=== PATIENT | male | born 1930 | race Caucasian/White ===

== ENCOUNTER 2017-11-01 16:00 | Inpatient (IN) | payer MEDICARE, BC ==
[~2017-11-01] VITALS: Ht 172.7 cm; Wt 86.4 kg
[2017-11-01] MEDS ORDERED: normal saline 1000ML IV soln IV ONE (16:10)
[2017-11-01 16:45] LABS: BASOPHILS % (AUTO) 0.3 % (0-1); EOSINOPHILS # (AUTO) 0.1 X10'3 (0-0.9); EOSINOPHILS % (AUTO) 1.5 % (0-6); HEMATOCRIT 35.7 % (42.0-52.0); HEMOGLOBIN 12.2 g/dl (14.0-17.9); LYMPHOCYTES # (AUTO) 1.7 X10'3 (1.1-4.8); LYMPHOCYTES % (AUTO) 18.4 % (21-51); MEAN CORPUSCULAR HEMOGLOBIN 33.7 PG (27.0-31.0); MEAN CORPUSCULAR HGB CONC 34.3 % (33.0-36.5); MEAN CORPUSCULAR VOLUME 98.2 FL (78-98); MEAN PLATELET VOLUME 7.3 FL (7.4-10.4); MONOCYTES # (AUTO) 0.6 X10'3 (0-0.9); MONOCYTES % (AUTO) 6.1 % (2-12); NEUTROPHILS # (AUTO) 6.9 X10'3 (1.8-7.7); NEUTROPHILS % (AUTO) 73.7 % (42-75); PLATELET COUNT 251 X10'3 (140-440); RED BLOOD COUNT 3.64 X10'6 (4.70-6.10); RED CELL DISTRIBUTION WIDTH 13.7 % (11.5-14.5); WHITE BLOOD COUNT 9.4 X10'3 (4.5-11.0)
[2017-11-01 16:54] LABS: PROTHROMBIN TIME 10.6 SECONDS (9.0-12.0)
[2017-11-01 17:00] LABS: ALANINE AMINOTRANSFERASE 21 U/L (12-78); ALBUMIN 3.3 G/DL (3.4-5.0); ALBUMIN/GLOBULIN RATIO 1.1 (1.1-1.5); ALKALINE PHOSPHATASE 63 IU/L (46-116); ANION GAP 6 (8-16); ASPARTATE AMINO TRANSFERASE 13 U/L (10-37); BILIRUBIN,TOTAL 0.3 MG/DL (0.1-1.0); BLOOD UREA NITROGEN 19 MG/DL (7-18); BUN/CREATININE RATIO 23.8 (5.4-32.0); CALCIUM 9.1 MG/DL (8.5-10.1); CHLORIDE 104 MMOL/L (99-107); GLUCOSE 103 MG/DL (70-104); SODIUM 138 MMOL/L (135-145); TOTAL CARBON DIOXIDE 28.1 MMOL/L (24-32); TOTAL PROTEIN 6.4 G/DL (6.4-8.2); eGFR > 90 ML/MIN
[2017-11-01] MEDS ORDERED: mag hydrox/Alum hydrox/simeth 30ml oral suspension PO PRN (17:10)
[2017-11-01] MEDS ORDERED: morphine 4 MG/ML inj SYRINge IV PRN ×2 (17:10)
[2017-11-01] MEDS ORDERED: ondansetron/PF 4mg/2ml inj IV PRN (17:10)
[2017-11-01] MEDS ORDERED: acetaminophen 325mg tablet PO PRN (17:10)
[2017-11-01] MEDS ORDERED: magnesium hydroxide 30ml (MOM) UD suspension PO PRN (17:10)
[2017-11-01 17:37] LABS: CLARITY,URINE CLEAR (Clear); COLOR,URINE YELLOW (Yellow); GLUCOSE, URINE NEGATIVE (Neg); KETONES,URINE NEGATIVE (Neg); LEUKOCYTE ESTERASE ,URINE NEGATIVE (Neg); NITRITES, URINE NEGATIVE (Neg); OCCULT BLOOD,URINE NEGATIVE (Neg); PH,URINE 5.5 (4.8-8.0); PROTEIN,URINE NEGATIVE (Neg); UROBILINOGEN,URINE 0.2 E.U/dL (0.2-1.0)
[2017-11-01 17:38] LABS: UA COLLECTION TYPE CLN CATCH MIDSTREAM
[2017-11-01] MEDS: normal saline 1000ml 1,000 ML IV SCH (17:46)
[2017-11-01 19:35] VITALS: BP 150/97
[2017-11-01] MEDS ORDERED: OMEG1CAP13 PO (19:35)
[2017-11-01] MEDS ORDERED: VITA-319 PO (19:35)
[2017-11-01] MEDS ORDERED: ADV50250 IH (19:35)
[2017-11-01] MEDS ORDERED: FLO0.4C PO (19:35)
[2017-11-01] MEDS ORDERED: RED600CA2 PO (19:35)
[2017-11-01] MEDS ORDERED: VITC500T PO (19:35)
[2017-11-01] MEDS ORDERED: ALBU8.5H8 INH (19:35)
[2017-11-01] MEDS ORDERED: pantoprazole 40 MG vial IV ONE (20:00)
[2017-11-01 21:27] LABS: BASOPHILS % (AUTO) 0.1 % (0-1); EOSINOPHILS # (AUTO) 0.1 X10'3 (0-0.9); EOSINOPHILS % (AUTO) 0.7 % (0-6); HEMATOCRIT 34.3 % (42.0-52.0); HEMOGLOBIN 11.6 g/dl (14.0-17.9); LYMPHOCYTES % (AUTO) 20.7 % (21-51); MEAN CORPUSCULAR HEMOGLOBIN 33.6 PG (27.0-31.0); MEAN CORPUSCULAR HGB CONC 33.7 % (33.0-36.5); MEAN CORPUSCULAR VOLUME 99.7 FL (78-98); MEAN PLATELET VOLUME 7.9 FL (7.4-10.4); MONOCYTES # (AUTO) 0.5 X10'3 (0-0.9); MONOCYTES % (AUTO) 5.6 % (2-12); NEUTROPHILS % (AUTO) 72.9 % (42-75); PLATELET COUNT 230 X10'3 (140-440); RED BLOOD COUNT 3.44 X10'6 (4.70-6.10); RED CELL DISTRIBUTION WIDTH 13.2 % (11.5-14.5); WHITE BLOOD COUNT 9.6 X10'3 (4.5-11.0)
[2017-11-01 22:32] VITALS: BP_SYST 121; BP_SYST 124; BP_SYST 148; BP_DIAS 71; BP_DIAS 72; BP_DIAS 90
[2017-11-02] VITALS (20 sets, daily range): BP systolic 95–138; BP diastolic 54–79
[2017-11-02] MEDS: normal saline 1000ml 1,000 ML IV SCH ×2 (02:45→16:01)
[2017-11-02 04:41] LABS: BASOPHILS % (AUTO) 0 % (0-1); EOSINOPHILS # (AUTO) 0.1 X10'3 (0-0.9); EOSINOPHILS % (AUTO) 1.4 % (0-6); HEMATOCRIT 27.4 % (42.0-52.0); HEMOGLOBIN 9.3 g/dl (14.0-17.9); LYMPHOCYTES # (AUTO) 1.4 X10'3 (1.1-4.8); LYMPHOCYTES % (AUTO) 15.2 % (21-51); MEAN CORPUSCULAR HEMOGLOBIN 33.7 PG (27.0-31.0); MEAN CORPUSCULAR VOLUME 99.1 FL (78-98); MEAN PLATELET VOLUME 7.5 FL (7.4-10.4); MONOCYTES # (AUTO) 0.5 X10'3 (0-0.9); MONOCYTES % (AUTO) 5.5 % (2-12); NEUTROPHILS # (AUTO) 7.2 X10'3 (1.8-7.7); NEUTROPHILS % (AUTO) 77.9 % (42-75); PLATELET COUNT 197 X10'3 (140-440); RED BLOOD COUNT 2.76 X10'6 (4.70-6.10); RED CELL DISTRIBUTION WIDTH 13.4 % (11.5-14.5); WHITE BLOOD COUNT 9.3 X10'3 (4.5-11.0)
[2017-11-02 05:02] LABS: ALBUMIN 2.6 G/DL (3.4-5.0); ANION GAP 5 (8-16); BLOOD UREA NITROGEN 18 MG/DL (7-18); BUN/CREATININE RATIO 20.9 (5.4-32.0); CALCIUM 8.5 MG/DL (8.5-10.1); CHLORIDE 108 MMOL/L (99-107); CREATININE 0.86 MG/DL (0.60-1.10); GLUCOSE 110 MG/DL (70-104); POTASSIUM 4.1 MMOL/L (3.5-5.1); SODIUM 139 MMOL/L (135-145); TOTAL CARBON DIOXIDE 25.6 MMOL/L (24-32); eGFR 85 ML/MIN
[2017-11-02] MEDS ORDERED: NAPR-1154 PO (12:04)
[2017-11-02] MEDS ORDERED: PREG50CA PO (12:04)
[2017-11-02] MEDS ORDERED: fentaNYL/PF 50MCG/1 ML 2ML syringe ONE (12:35)
[2017-11-02] MEDS ORDERED: MIDAZolam 5mg/5ml vial ONE (12:35)
[2017-11-02] MEDS ORDERED: LIDOcaine Viscous 15ml cup ONE (12:35)
[2017-11-02] MEDS ORDERED: non-formulary drug (Albuterol Sulfate (Proair Hfa) 1 PUFFS) INH PRN (12:50)
[2017-11-02] MEDS ORDERED: albuterol 2.5 MG/3 ML nebule NEB PRN (12:55)
[2017-11-02 17:18] LABS: BASOPHILS # (AUTO) 0.1 X10'3 (0-0.2); BASOPHILS % (AUTO) 1.3 % (0-1); EOSINOPHILS # (AUTO) 0.1 X10'3 (0-0.9); EOSINOPHILS % (AUTO) 0.7 % (0-6); HEMATOCRIT 28.4 % (42.0-52.0); HEMOGLOBIN 9.7 g/dl (14.0-17.9); LYMPHOCYTES # (AUTO) 2.2 X10'3 (1.1-4.8); LYMPHOCYTES % (AUTO) 20.3 % (21-51); MEAN CORPUSCULAR HEMOGLOBIN 33.9 PG (27.0-31.0); MEAN CORPUSCULAR HGB CONC 34.1 % (33.0-36.5); MEAN CORPUSCULAR VOLUME 99.3 FL (78-98); MEAN PLATELET VOLUME 7.7 FL (7.4-10.4); MONOCYTES # (AUTO) 0.7 X10'3 (0-0.9); MONOCYTES % (AUTO) 6.5 % (2-12); NEUTROPHILS # (AUTO) 7.7 X10'3 (1.8-7.7); NEUTROPHILS % (AUTO) 71.2 % (42-75); PLATELET COUNT 201 X10'3 (140-440); RED BLOOD COUNT 2.86 X10'6 (4.70-6.10); RED CELL DISTRIBUTION WIDTH 12.9 % (11.5-14.5); WHITE BLOOD COUNT 10.8 X10'3 (4.5-11.0)
[2017-11-02] MEDS ORDERED: PREGABALIN PO SCH (20:00)
[2017-11-02] MEDS ORDERED: non-formulary drug (Fluticasone/Salmeterol* (Advair 250-50 Diskus*) 1 PUFF) IH SCH (20:00)
[2017-11-02] MEDS: pantoprazole 40 MG vial IV SCH (20:57)
[2017-11-02 21:06] LABS: HEMATOCRIT 25.9 % (42.0-52.0); HEMOGLOBIN 8.8 g/dl (14.0-17.9); MEAN CORPUSCULAR HEMOGLOBIN 33.8 PG (27.0-31.0); MEAN CORPUSCULAR HGB CONC 34.2 % (33.0-36.5); MEAN CORPUSCULAR VOLUME 98.8 FL (78-98); MEAN PLATELET VOLUME 6.9 FL (7.4-10.4); PLATELET COUNT 204 X10'3 (140-440); RED BLOOD COUNT 2.62 X10'6 (4.70-6.10); RED CELL DISTRIBUTION WIDTH 13.8 % (11.5-14.5); WHITE BLOOD COUNT 10.2 X10'3 (4.5-11.0)
[2017-11-02] MEDS: pregabalin 25mg capsule PO SCH (21:06)
[2017-11-02] MEDS: albuterol 2.5 MG/3 ML nebule NEB SCH (23:04)
[2017-11-02] MEDS: BUDESONIDE 0.25 MG/2 ML AMPUL.NEB IH SCH (23:04)
[2017-11-03 05:49] LABS: BASOPHILS % (AUTO) 0.3 % (0-1); EOSINOPHILS # (AUTO) 0.1 X10'3 (0-0.9); EOSINOPHILS % (AUTO) 1.8 % (0-6); HEMOGLOBIN 8.3 g/dl (14.0-17.9); LYMPHOCYTES # (AUTO) 1.4 X10'3 (1.1-4.8); LYMPHOCYTES % (AUTO) 17.3 % (21-51); MEAN CORPUSCULAR HEMOGLOBIN 34.1 PG (27.0-31.0); MEAN CORPUSCULAR HGB CONC 34.4 % (33.0-36.5); MEAN PLATELET VOLUME 7.3 FL (7.4-10.4); MONOCYTES # (AUTO) 0.5 X10'3 (0-0.9); MONOCYTES % (AUTO) 6.6 % (2-12); NEUTROPHILS # (AUTO) 5.9 X10'3 (1.8-7.7); PLATELET COUNT 174 X10'3 (140-440); RED BLOOD COUNT 2.42 X10'6 (4.70-6.10); RED CELL DISTRIBUTION WIDTH 13.4 % (11.5-14.5); WHITE BLOOD COUNT 7.9 X10'3 (4.5-11.0)
[2017-11-03 06:08] LABS: ALBUMIN 2.5 G/DL (3.4-5.0); ANION GAP 4 (8-16); BLOOD UREA NITROGEN 15 MG/DL (7-18); BUN/CREATININE RATIO 19.5 (5.4-32.0); CALCIUM 8.2 MG/DL (8.5-10.1); CHLORIDE 109 MMOL/L (99-107); CREATININE 0.77 MG/DL (0.60-1.10); GLUCOSE 98 MG/DL (70-104); POTASSIUM 3.8 MMOL/L (3.5-5.1); SODIUM 140 MMOL/L (135-145); TOTAL CARBON DIOXIDE 27.5 MMOL/L (24-32); eGFR > 90 ML/MIN
[2017-11-03 06:55] VITALS: BP 129/69
[2017-11-03] MEDS: BUDESONIDE 0.25 MG/2 ML AMPUL.NEB IH SCH ×2 (07:19→19:50)
[2017-11-03] MEDS: albuterol 2.5 MG/3 ML nebule NEB SCH ×4 (07:19→19:50)
[2017-11-03] MEDS ORDERED: FATTY ACIDS PO SCH (08:00)
[2017-11-03] MEDS ORDERED: FISH OIL PO SCH (08:00)
[2017-11-03] MEDS ORDERED: RED YEAST RICE PO SCH (08:00)
[2017-11-03] MEDS ORDERED: OMEGA PO SCH (08:00)
[2017-11-03] MEDS: pregabalin 25mg capsule PO SCH ×2 (08:40→19:13)
[2017-11-03] MEDS: tamsulosin 0.4mg capsule PO SCH (08:40)
[2017-11-03] MEDS: ascorbic acid 500mg tablet PO SCH (08:40)
[2017-11-03] MEDS: pantoprazole 40 MG vial IV SCH ×2 (08:40→19:13)
[2017-11-03] MEDS: normal saline 1000ml 1,000 ML IV SCH ×3 (09:07→19:06)
[2017-11-03] MEDS ORDERED: PEG 3350/Na sulf,bicarb,Cl/KCl oral sol 4 liter bottle PO ONE (10:15)
[2017-11-03] MEDS: MESSAGE TO NURSING PO NR (10:31)
[2017-11-03 10:55] VITALS: BP 101/55
[2017-11-03 13:15] LABS: HEMATOCRIT 25.1 % (42.0-52.0); HEMOGLOBIN 8.5 g/dl (14.0-17.9); MEAN CORPUSCULAR HEMOGLOBIN 33.7 PG (27.0-31.0); MEAN CORPUSCULAR HGB CONC 33.8 % (33.0-36.5); MEAN CORPUSCULAR VOLUME 99.8 FL (78-98); MEAN PLATELET VOLUME 7.3 FL (7.4-10.4); PLATELET COUNT 188 X10'3 (140-440); RED BLOOD COUNT 2.52 X10'6 (4.70-6.10); RED CELL DISTRIBUTION WIDTH 12.7 % (11.5-14.5); WHITE BLOOD COUNT 7.2 X10'3 (4.5-11.0)
[2017-11-03 19:00] VITALS: BP_SYST 122; BP_SYST 124; BP_SYST 131; BP_DIAS 60; BP_DIAS 64
[2017-11-04] VITALS: BP 132/71
[2017-11-04] MEDS: normal saline 1000ml 1,000 ML IV SCH ×2 (04:21→16:47)
[2017-11-04 04:42] LABS: BASOPHILS % (AUTO) 0.3 % (0-1); EOSINOPHILS # (AUTO) 0.1 X10'3 (0-0.9); EOSINOPHILS % (AUTO) 0.9 % (0-6); HEMATOCRIT 23.3 % (42.0-52.0); HEMOGLOBIN 8.1 g/dl (14.0-17.9); LYMPHOCYTES # (AUTO) 1.5 X10'3 (1.1-4.8); LYMPHOCYTES % (AUTO) 20.2 % (21-51); MEAN CORPUSCULAR HEMOGLOBIN 34.4 PG (27.0-31.0); MEAN CORPUSCULAR HGB CONC 34.6 % (33.0-36.5); MEAN CORPUSCULAR VOLUME 99.3 FL (78-98); MEAN PLATELET VOLUME 7.5 FL (7.4-10.4); MONOCYTES # (AUTO) 0.5 X10'3 (0-0.9); MONOCYTES % (AUTO) 7.2 % (2-12); NEUTROPHILS # (AUTO) 5.5 X10'3 (1.8-7.7); NEUTROPHILS % (AUTO) 71.4 % (42-75); PLATELET COUNT 187 X10'3 (140-440); RED BLOOD COUNT 2.35 X10'6 (4.70-6.10); RED CELL DISTRIBUTION WIDTH 12.8 % (11.5-14.5); WHITE BLOOD COUNT 7.6 X10'3 (4.5-11.0)
[2017-11-04 04:46] LABS: ALBUMIN 2.4 G/DL (3.4-5.0); ANION GAP 5 (8-16); BLOOD UREA NITROGEN 8 MG/DL (7-18); BUN/CREATININE RATIO 11.4 (5.4-32.0); CALCIUM 8.4 MG/DL (8.5-10.1); CHLORIDE 110 MMOL/L (99-107); GLUCOSE 101 MG/DL (70-104); POTASSIUM 3.5 MMOL/L (3.5-5.1); SODIUM 144 MMOL/L (135-145); TOTAL CARBON DIOXIDE 28.9 MMOL/L (24-32); eGFR > 90 ML/MIN
[2017-11-04] MEDS: BUDESONIDE 0.25 MG/2 ML AMPUL.NEB IH SCH ×2 (07:17→19:19)
[2017-11-04] MEDS: albuterol 2.5 MG/3 ML nebule NEB SCH ×4 (07:17→19:19)
[2017-11-04 07:30] VITALS: BP 142/77
[2017-11-04] MEDS: ascorbic acid 500mg tablet PO SCH (08:00)
[2017-11-04] MEDS: pantoprazole 40 MG vial IV SCH ×2 (08:19→19:45)
[2017-11-04] MEDS: pregabalin 25mg capsule PO SCH ×2 (08:19→19:45)
[2017-11-04] MEDS: tamsulosin 0.4mg capsule PO SCH (08:19)
[2017-11-04] MEDS: MESSAGE TO NURSING PO NR (08:26)
[2017-11-04 10:40] VITALS: BP_SYST 109; BP_SYST 115; BP_SYST 94; BP_DIAS 49; BP_DIAS 52; BP_DIAS 56
[2017-11-04 11:00] VITALS: BP 93/67
[2017-11-04] MEDS ORDERED: normal saline 500ml IV soln 500 ML IV ONE (12:10)
[2017-11-04 14:00] VITALS: BP 112/52
[2017-11-04] MEDS ORDERED: PEG 3350/Na sulf,bicarb,Cl/KCl oral sol 4 liter bottle PO ONE (14:00)
[2017-11-04 16:29] LABS: HEMATOCRIT 23.5 % (42.0-52.0); MEAN CORPUSCULAR HEMOGLOBIN 34.1 PG (27.0-31.0); MEAN CORPUSCULAR HGB CONC 34.3 % (33.0-36.5); MEAN CORPUSCULAR VOLUME 99.5 FL (78-98); MEAN PLATELET VOLUME 7.2 FL (7.4-10.4); PLATELET COUNT 192 X10'3 (140-440); RED BLOOD COUNT 2.36 X10'6 (4.70-6.10); RED CELL DISTRIBUTION WIDTH 13.8 % (11.5-14.5); WHITE BLOOD COUNT 7.3 X10'3 (4.5-11.0)
[2017-11-04 19:00] VITALS: BP_SYST 132; BP_SYST 139; BP_SYST 144; BP_DIAS 56; BP_DIAS 61; BP_DIAS 69
[2017-11-05] VITALS (15 sets, daily range): BP systolic 95–142; BP diastolic 56–80
[2017-11-05] MEDS: normal saline 1000ml 1,000 ML IV SCH ×2 (02:44→11:07)
[2017-11-05 05:40] LABS: BASOPHILS % (AUTO) 0.4 % (0-1); EOSINOPHILS # (AUTO) 0.2 X10'3 (0-0.9); EOSINOPHILS % (AUTO) 2.9 % (0-6); HEMATOCRIT 22.1 % (42.0-52.0); HEMOGLOBIN 7.5 g/dl (14.0-17.9); LYMPHOCYTES # (AUTO) 1.2 X10'3 (1.1-4.8); LYMPHOCYTES % (AUTO) 18.8 % (21-51); MEAN CORPUSCULAR HEMOGLOBIN 34.1 PG (27.0-31.0); MEAN CORPUSCULAR HGB CONC 34.1 % (33.0-36.5); MEAN CORPUSCULAR VOLUME 100.1 FL (78-98); MEAN PLATELET VOLUME 7.3 FL (7.4-10.4); MONOCYTES # (AUTO) 0.5 X10'3 (0-0.9); MONOCYTES % (AUTO) 7.8 % (2-12); NEUTROPHILS # (AUTO) 4.6 X10'3 (1.8-7.7); NEUTROPHILS % (AUTO) 70.1 % (42-75); PLATELET COUNT 189 X10'3 (140-440); RED BLOOD COUNT 2.21 X10'6 (4.70-6.10); RED CELL DISTRIBUTION WIDTH 14.1 % (11.5-14.5); WHITE BLOOD COUNT 6.6 X10'3 (4.5-11.0)
[2017-11-05 06:09] LABS: ALBUMIN 2.4 G/DL (3.4-5.0); ANION GAP 7 (8-16); BLOOD UREA NITROGEN 4 MG/DL (7-18); BUN/CREATININE RATIO 4.9 (5.4-32.0); CALCIUM 8.2 MG/DL (8.5-10.1); CHLORIDE 110 MMOL/L (99-107); CREATININE 0.81 MG/DL (0.60-1.10); GLUCOSE 95 MG/DL (70-104); POTASSIUM 3.5 MMOL/L (3.5-5.1); SODIUM 144 MMOL/L (135-145); TOTAL CARBON DIOXIDE 27.4 MMOL/L (24-32); eGFR > 90 ML/MIN
[2017-11-05] MEDS: albuterol 2.5 MG/3 ML nebule NEB SCH ×4 (07:06→20:04)
[2017-11-05] MEDS: BUDESONIDE 0.25 MG/2 ML AMPUL.NEB IH SCH ×2 (07:06→20:04)
[2017-11-05] MEDS: pregabalin 25mg capsule PO SCH ×2 (07:37→20:21)
[2017-11-05] MEDS: ascorbic acid 500mg tablet PO SCH (07:37)
[2017-11-05] MEDS: MESSAGE TO NURSING PO NR (07:37)
[2017-11-05] MEDS: tamsulosin 0.4mg capsule PO SCH (07:37)
[2017-11-05] MEDS: pantoprazole 40 MG vial IV SCH (07:37)
[2017-11-05] MEDS ORDERED: fentaNYL/PF 50MCG/1 ML 2ML syringe ONE (08:17)
[2017-11-05] MEDS ORDERED: MIDAZolam 5mg/5ml vial ONE (08:18)
[2017-11-05 16:11] LABS: HEMATOCRIT 23.7 % (42.0-52.0); HEMOGLOBIN 8.2 g/dl (14.0-17.9); MEAN CORPUSCULAR HEMOGLOBIN 34.3 PG (27.0-31.0); MEAN CORPUSCULAR HGB CONC 34.5 % (33.0-36.5); MEAN CORPUSCULAR VOLUME 99.2 FL (78-98); MEAN PLATELET VOLUME 7.2 FL (7.4-10.4); PLATELET COUNT 229 X10'3 (140-440); RED BLOOD COUNT 2.39 X10'6 (4.70-6.10); WHITE BLOOD COUNT 7.7 X10'3 (4.5-11.0)
[2017-11-05] MEDS: pantoprazole 40mg Tablet.DR PO SCH (20:21)
[2017-11-06] VITALS: BP 121/60
[2017-11-06 05:09] LABS: BASOPHILS % (AUTO) 0.2 % (0-1); EOSINOPHILS # (AUTO) 0.2 X10'3 (0-0.9); EOSINOPHILS % (AUTO) 2.3 % (0-6); HEMATOCRIT 22.5 % (42.0-52.0); HEMOGLOBIN 7.9 g/dl (14.0-17.9); LYMPHOCYTES # (AUTO) 1.4 X10'3 (1.1-4.8); LYMPHOCYTES % (AUTO) 16.6 % (21-51); MEAN CORPUSCULAR HEMOGLOBIN 35.1 PG (27.0-31.0); MEAN CORPUSCULAR HGB CONC 35.1 % (33.0-36.5); MEAN PLATELET VOLUME 7.2 FL (7.4-10.4); MONOCYTES # (AUTO) 0.7 X10'3 (0-0.9); MONOCYTES % (AUTO) 8.2 % (2-12); NEUTROPHILS # (AUTO) 5.9 X10'3 (1.8-7.7); NEUTROPHILS % (AUTO) 72.7 % (42-75); PLATELET COUNT 214 X10'3 (140-440); RED BLOOD COUNT 2.25 X10'6 (4.70-6.10); RED CELL DISTRIBUTION WIDTH 13.4 % (11.5-14.5); WHITE BLOOD COUNT 8.2 X10'3 (4.5-11.0)
[2017-11-06 06:20] LABS: ALBUMIN 2.5 G/DL (3.4-5.0); ANION GAP 7 (8-16); BLOOD UREA NITROGEN 5 MG/DL (7-18); CALCIUM 8.4 MG/DL (8.5-10.1); CHLORIDE 107 MMOL/L (99-107); CREATININE 0.84 MG/DL (0.60-1.10); GLUCOSE 103 MG/DL (70-104); POTASSIUM 3.2 MMOL/L (3.5-5.1); SODIUM 142 MMOL/L (135-145); TOTAL CARBON DIOXIDE 28.1 MMOL/L (24-32); eGFR 87 ML/MIN
[2017-11-06] MEDS: pregabalin 25mg capsule PO SCH (06:55)
[2017-11-06] MEDS: ascorbic acid 500mg tablet PO SCH (06:55)
[2017-11-06] MEDS: tamsulosin 0.4mg capsule PO SCH (06:55)
[2017-11-06] MEDS: pantoprazole 40mg Tablet.DR PO SCH (06:56)
[2017-11-06 07:00] VITALS: BP 120/94
[2017-11-06] MEDS: albuterol 2.5 MG/3 ML nebule NEB SCH ×2 (07:00→11:31)
[2017-11-06 08:10] VITALS: BP_SYST 120; BP_SYST 130; BP_SYST 132; BP_DIAS 69; BP_DIAS 73; BP_DIAS 94
[2017-11-06] MEDS: BUDESONIDE 0.25 MG/2 ML AMPUL.NEB IH SCH (08:50)
[2017-11-06] MEDS: MESSAGE TO NURSING PO NR (09:46)
[2017-11-06] MEDS ORDERED: potassium Cl 20 mEq SR tablet PO STA (10:13)
[2017-11-06] MEDS ORDERED: PANT40TA4 PO (10:38)
[2017-11-06 12:28] VITALS: BP 128/68
== END 2017-11-06 13:00 | disposition home or self-care (01) | DRG 378 ==
LOC: ER 16:01 → ED HOLD 17:07 → SUR 3N 19:35
PROVIDERS: ADMIT Internal Medicine; ATTEND Family Medicine
PROC: 0DB68ZX Excision of Stomach, Via Natural or Artificial Opening Endoscopic, Diagnostic (ICD-10-PCS; 2017-11-02)
PROC: 0DBK8ZX Excision of Ascending Colon, Via Natural or Artificial Opening Endoscopic, Diagnostic (ICD-10-PCS; principal; 2017-11-05)
DX: K92.1 Melena (principal); D62 Acute posthemorrhagic anemia; J44.9 Chronic obstructive pulmonary disease, unspecified; E78.00 Pure hypercholesterolemia, unspecified; R33.9 Retention of urine, unspecified; E87.6 Hypokalemia; H91.90 Unspecified hearing loss, unspecified ear; I95.1 Orthostatic hypotension; D12.2 Benign neoplasm of ascending colon; K57.30 Diverticulosis of large intestine without perforation or abscess without bleeding; K20.9 Esophagitis, unspecified; K25.9 Gastric ulcer, unspecified as acute or chronic, without hemorrhage or perforation; K29.80 Duodenitis without bleeding; K44.9 Diaphragmatic hernia without obstruction or gangrene; K64.8 Other hemorrhoids; N40.1 Benign prostatic hyperplasia with lower urinary tract symptoms; T39.395A Adverse effect of other nonsteroidal anti-inflammatory drugs [NSAID], initial encounter; Z79.899 Other long term (current) drug therapy; Z87.891 Personal history of nicotine dependence
CPT/HCPCS: 36415; 43239; 45385; 71045; 80048; 80053; 81003; 84484; 85025; 85027; 85610; 86885; 86900; 86901; 87070; 88305; 88342; 93005; 94640; 94760; 97116; 97161; 97530; 99285; A4353; A4620; C9113; G0500; J2250; J3010; J7030

== ENCOUNTER 2019-01-18 05:16 | Inpatient (IN) | payer MEDICARE, BC ==
[2019-01-08 12:55] LABS: BASOPHILS % (AUTO) 0.4 % (0-1); EOSINOPHILS # (AUTO) 0.1 X10'3 (0-0.9); EOSINOPHILS % (AUTO) 0.9 % (0-6); LYMPHOCYTES # (AUTO) 1.7 X10'3 (1.1-4.8); LYMPHOCYTES % (AUTO) 23.1 % (21-51); MEAN CORPUSCULAR HGB CONC 34.6 g/dL (33.0-36.5); MEAN CORPUSCULAR VOLUME 101.3 FL (78-98); MEAN PLATELET VOLUME 7.7 FL (7.4-10.4); MONOCYTES # (AUTO) 0.6 X10'3 (0-0.9); MONOCYTES % (AUTO) 8.2 % (2-12); NEUTROPHILS % (AUTO) 67.4 % (42-75); PRE OP HEMATOCRIT 44.9 % (42.0-52.0); PRE OP HEMOGLOBIN 15.5 g/dL (14.0-17.9); PRE OP PLATELET COUNT 222 X10'3 (140-440); RED BLOOD COUNT 4.43 X10'6 (4.70-6.10); RED CELL DISTRIBUTION WIDTH 13.2 % (11.5-14.5)
[2019-01-08 13:14] LABS: PRE OP INR 1.1 INR; PRE OP PROTIME 11.1 SECONDS (9.0-12.0)
[2019-01-08 13:34] LABS: ALBUMIN 3.5 G/DL (3.4-5.0); ALKALINE PHOSPHATASE 70 IU/L (46-116); BLOOD UREA NITROGEN 23 MG/DL (7-18); BUN/CREATININE RATIO 28.4 (5.4-32.0); CALCIUM 8.9 MG/DL (8.5-10.1); CHLORIDE 109 MMOL/L (99-107); CREATININE 0.81 MG/DL (0.60-1.10); PRE OP ALT 20 U/L (30-65); PRE OP ANION GAP 9 (8-16); PRE OP AST 18 U/L (10-37); PRE OP BILIRUB, TOTAL 0.5 MG/DL (0.0-1.0); PRE OP GLUCOSE 111 MG/DL (70-104); PRE OP POTASSIUM 3.8 MMOL/L (3.4-5.1); PRE OP SODIUM 144 MMOL/L (135-145); TOTAL CARBON DIOXIDE 26.5 MMOL/L (24-32); TOTAL PROTEIN 7.1 G/DL (6.4-8.2); eGFR 90 ML/MIN
[2019-01-18] VITALS (18 sets, daily range): BP systolic 98–149; BP diastolic 60–89
[~2019-01-18] VITALS: Ht 175.3 cm; Wt 86.6 kg
[~2019-01-18 05:16] MED LIST: ALBU8.5H8 INH; FLO0.4C PO; MOME13HF2 INH; PREG50CA PO; ringers solution, lacted 1,000 ML IV SCH
[2019-01-18] MEDS ORDERED: famotidine 20mg tablet PO ONE (05:30)
[2019-01-18] MEDS ORDERED: cefazolin/dext.iso 2gm/50ml 50 ML IV ONE (05:30)
[2019-01-18] MEDS ORDERED: vancomycin inj 1,500 MG in normal saline 300ml IV soln IV ONE (05:30)
[2019-01-18] MEDS ORDERED: LIDOcaine 1% (10mg/ml) 2ml vial ONE (05:36)
[2019-01-18] MEDS ORDERED: BUPIVAcaine/PF 2.5 mg/ml (0.25%) 30ml vial ONE (06:50)
[2019-01-18] MEDS ORDERED: tetracaine 1% (10mg/ml) pres. free inj. ONE (07:14)
[2019-01-18] MEDS ORDERED: fentaNYL/PF 50MCG/1 ML 2ML syringe ONE (07:16)
[2019-01-18] MEDS ORDERED: MIDAZolam 5mg/5ml vial ONE (07:16)
[2019-01-18] MEDS ORDERED: ringers solution, lacted 1,000 ML IV SCH (08:13)
[2019-01-18] MEDS ORDERED: meperidine/PF 25mg/ml syringe IV PRN ×3 (08:15)
[2019-01-18] MEDS ORDERED: proCHLORperazine 10 MG/2 ml inj IV PRN (08:15)
[2019-01-18] MEDS ORDERED: morphine 4 MG/ML inj SYRINge IV PRN ×2 (08:15)
[2019-01-18] MEDS ORDERED: ondansetron/PF 4mg/2ml inj IV PRN ×2 (08:15→11:35)
[2019-01-18] MEDS ORDERED: ePHEDrine 50MG/ML INJ. ONE (10:30)
--- NOTE | 2019-01-18 11:20 | NUR ---
Received from OR via BED, accompanied by Anesthesiologist DR LYNCH and report given by Anesthesiolgist. PATIENT A&OX4, DENIES PAIN, V/S WNL, NEUROVASCULAR CHECKS INTACT, 20G PIV LUE, SCD ON, DRESSING TO LEFT ANKLE SPLINT CDI ELEVATED WITH ICEBAG APPLIED.
[2019-01-18] MEDS ORDERED: magnesium hydroxide 30ml (MOM) UD suspension PO PRN (11:35)
[2019-01-18] MEDS ORDERED: HYDROmorphone inj. 0.5 MG/0.5 ML DISP.SYRIN IV PRN (11:35)
[2019-01-18] MEDS ORDERED: diphenhydrAMINE 25mg capsule PO PRN ×2 (11:35)
[2019-01-18] MEDS ORDERED: acetaminophen 325mg tablet PO PRN (11:35)
[2019-01-18] MEDS ORDERED: bisacodyl 10mg suppository rectal RC PRN (11:35)
[2019-01-18] MEDS ORDERED: FLO44IN IH (12:11)
--- NOTE | 2019-01-18 12:14 | NUR ---
received report from recovery nurse
--- NOTE | 2019-01-18 12:20 | NUR ---
PATIENT A&OX4, DENIES PAIN, V/S WNL, NEUROVASCULAR CHECKS INTACT, 20G PIV LUE, SCD ON, DRESSING TO LEFT ANKLE SPLINT CDI ELEVATED WITH ICEBAG APPLIED. PATIENT TAKEN TO 4021A WITH ALL BELONGINGS AND HOOKED UP TO MONITORS IN ROOM AND REPORT GIVEN TO CARRY OUT CLERK AND SHELF STOCKER WHO HAS TAKEN OVER PATIENT CARE.
[2019-01-18] MEDS ORDERED: albuterol 2.5 MG/3 ML nebule NEB SCH (14:00)
[2019-01-18] MEDS: HYDROcodone/acetaminophen 10/325mg tab PO PRN ×3 (14:34→23:46)
[2019-01-18] MEDS: ceFAZolin 1GM/D5W- ADD-VANTAGE 50 ML IV SCH ×2 (16:28→23:46)
[2019-01-18] MEDS: potassium Cl 20mEq in NS 1,000 ML IV SCH (16:30)
[2019-01-18] MEDS: albuterol 2.5 MG/3 ML nebule NEB PRN ×2 (16:37→19:30)
--- NOTE | 2019-01-18 17:13 | NUR ---
dr arroyo at bedside, left ankle dressing draining bright red blood, dr. arroyo re-inforced dressing w/another jasiel wrap on top of draining dressing, dr. arroyo said to keep an eye on dressing, currently new dressing dry, continue to monitor
[2019-01-18] MEDS: tamsulosin 0.4mg capsule PO SCH (17:46)
--- NOTE | 2019-01-18 18:21 | NUR ---
gave report to damaris klein
[2019-01-18] MEDS: pregabalin 25mg capsule PO SCH (19:18)
[2019-01-18] MEDS: budesonide 0.5mg/2ml UD nebule IH SCH (19:30)
[2019-01-18] MEDS ORDERED: vancomycin/NS 1 GM ADD-VANTAGE 250 ML IV SCH (20:00)
[2019-01-18] MEDS: sennosides 8.6mg tablet PO SCH (21:00)
[2019-01-19] MEDS: potassium Cl 20mEq in NS 1,000 ML IV SCH ×2 (00:54→14:14)
[2019-01-19 02:09] VITALS: BP 110/57
[2019-01-19] MEDS: HYDROcodone/acetaminophen 10/325mg tab PO PRN (05:24)
[2019-01-19 06:00] VITALS: BP 106/56
--- NOTE | 2019-01-19 06:17 | NUR ---
Problems reprioritized. Patient report given, questions answered & plan of care reviewed with DAYANA Suarez.
--- NOTE | 2019-01-19 06:26 | NUR ---
Patient in room [facility]21. I have received report from Jennifer Park and had the opportunity to ask questions and assume patient care.
[2019-01-19] MEDS: pregabalin 25mg capsule PO SCH ×2 (07:20→20:07)
[2019-01-19] MEDS: budesonide 0.5mg/2ml UD nebule IH SCH ×2 (08:00→20:22)
[2019-01-19 10:00] VITALS: BP 115/58
[2019-01-19] MEDS: mag hydrox/Alum hydrox/simeth 30ml oral suspension PO PRN (11:21)
[2019-01-19 14:00] VITALS: BP 133/65
[2019-01-19 18:00] VITALS: BP 134/61
--- NOTE | 2019-01-19 18:07 | NUR ---
Problems reprioritized. Patient report given, questions answered & plan of care reviewed with Jennifer Park
[2019-01-19] MEDS: sennosides 8.6mg tablet PO SCH (20:07)
[2019-01-19] MEDS: tamsulosin 0.4mg capsule PO SCH (20:07)
[2019-01-19 22:00] VITALS: BP 142/68
--- NOTE | 2019-01-20 02:44 | NUR ---
reviewed and agree with SRN assessment
[2019-01-20] MEDS: HYDROcodone/acetaminophen 10/325mg tab PO PRN ×3 (05:34→19:25)
[2019-01-20 06:00] VITALS: BP 124/61
--- NOTE | 2019-01-20 06:27 | NUR ---
Problems reprioritized. Patient report given, questions answered & plan of care reviewed with DAYANA David.
[2019-01-20] MEDS: pregabalin 25mg capsule PO SCH ×2 (08:13→19:24)
[2019-01-20] MEDS: budesonide 0.5mg/2ml UD nebule IH SCH ×2 (09:17→19:03)
[2019-01-20] MEDS: albuterol 2.5 MG/3 ML nebule NEB PRN (09:17)
[2019-01-20] MEDS: ondansetron 4mg rapidly disintigrating tab PO PRN (09:31)
[2019-01-20 10:00] VITALS: BP 108/57
[2019-01-20] MEDS: tamsulosin 0.4mg capsule PO SCH (17:19)
[2019-01-20] MEDS: mag hydrox/Alum hydrox/simeth 30ml oral suspension PO PRN (17:55)
[2019-01-20 18:00] VITALS: BP 114/62
--- NOTE | 2019-01-20 18:24 | NUR ---
Problems reprioritized. Patient report given, questions answered & plan of care reviewed with Kaylee ANNE.
[2019-01-20] MEDS: sennosides 8.6mg tablet PO SCH (19:25)
[2019-01-20 22:00] VITALS: BP 138/67
--- NOTE | 2019-01-21 06:38 | NUR ---
reported to days. noted pt needs norco for Pre-PT
[2019-01-21] MEDS: HYDROcodone/acetaminophen 10/325mg tab PO PRN ×2 (06:41→15:26)
[2019-01-21 07:00] VITALS: BP 129/47
[2019-01-21] MEDS: pregabalin 25mg capsule PO SCH (07:25)
--- NOTE | 2019-01-21 07:42 | NUR ---
SPOKE WITH PT. REGARDING ADDITION PT NEEDED. PT. STATES HIS HAS BACK HEALTH PROBLEMS AND HE WOULD LIKE TO AVOID PUTTING ANY STRAIN ON HER WORKLOAD. HE STATES HE IS WILLING TO TRANSFER TO A REHAB. FACILITY. CASE MANAGEMENT NOTIFIED.
[2019-01-21] MEDS: albuterol 2.5 MG/3 ML nebule NEB PRN (08:42)
[2019-01-21] MEDS: budesonide 0.5mg/2ml UD nebule IH SCH (08:42)
--- NOTE | 2019-01-21 09:16 | NUR ---
cALLED md Addendum: 01/21/19 at 0918 by Barbara Duran RN CALLED MD TO VERIFY THAT PT. IS GOING TO REHAB FACILITY. AWARE AND HAS ORDERS IN CHART FOR TRANSFER. CASE MANAGEMENT MADE AWARE, SPOKE TO PT. HE WOULD PREFER TO GO TO [facility] OR [facility].
[2019-01-21 10:00] VITALS: BP 111/60
[2019-01-21] MEDS: ondansetron 4mg rapidly disintigrating tab PO PRN (10:00)
--- NOTE | 2019-01-21 12:38 | NUR ---
Called [facility]- the facility where this pt. is accepted to. Attempted to give report, charge nurse stated that she was not expecting pt. until after 230 pm and to call back and give report to Kathie.
--- NOTE | 2019-01-21 14:24 | NUR ---
Called in report to [facility]. Spoke with Kathie MORALES. Called Greer Faria -spouse- to notify of transfer, left voicemail.
--- NOTE | 2019-01-21 15:33 | NUR ---
Pt. transferred to [facility] post acute. Picked up by [facility], belongings gathered, no IV, no tele, transferred to [facility] via . Transfer paperwork provided to jorge l cargo. Pt. in stable condition for transfer.
== END 2019-01-21 15:34 | DRG 494 ==
LOC: PAS 05:16 → ORTHO 4S 13:08
PROVIDERS: ADMIT Orthopaedic Surgery; ATTEND Orthopaedic Surgery
PROC: 0SGG04Z Fusion of Left Ankle Joint with Internal Fixation Device, Open Approach (ICD-10-PCS; principal; 2019-01-18 07:12)
DX: M19.072 Primary osteoarthritis, left ankle and foot (principal); J44.9 Chronic obstructive pulmonary disease, unspecified; N40.0 Benign prostatic hyperplasia without lower urinary tract symptoms; Z88.6 Allergy status to analgesic agent; Z87.891 Personal history of nicotine dependence; Z79.899 Other long term (current) drug therapy
CPT/HCPCS: 36415; 80053; 82948; 85025; 85610; 85730; 93005; 94640; 94668; 94760; 97110; 97112; 97116; 97161; 97530; A4215; A4618; A6223; A6449; A7000; C1713; G0378; J0690; J1170; J2001; J2250; J3010; J3370; J3480; J3490; J7120; J7626